=== PATIENT | male | born 1950 | race Two or more races ===

== ENCOUNTER 2022-12-06 | Emergency (ER) | payer OTHER, BC ==
[~2022-12-06] VITALS: Ht 165.1 cm; Wt 62.1 kg
--- NOTE | 2022-12-06 00:06 | NUR ---
Patient placed in room 2B. Patient Aox4, ambulatory.
--- NOTE | 2022-12-06 00:10 | NUR ---
Xray at bedside
[2022-12-06] MEDS ORDERED: OXYCODONE/APAP 5-325 MG TABLET ONE (00:11)
[2022-12-06] MEDS ORDERED: ONDANSETRON ODT 4 MG TAB.RAPDIS ONE (00:11)
[2022-12-06] MEDS ORDERED: ONDANSETRON ODT 4 MG TAB.RAPDIS SL ONE (00:15)
[2022-12-06] MEDS ORDERED: OXYCODONE/APAP 5-325 MG TABLET PO ONE (00:15)
--- NOTE | 2022-12-06 00:32 | NUR ---
Patient placed on right thumb spica. Patients at bedside
[2022-12-06] MEDS ORDERED: ONDA4TAB5 PO (00:39)
[2022-12-06] MEDS ORDERED: HYDR-4209 PO (00:39)
--- NOTE | 2022-12-06 00:50 | NUR ---
Patient discharged to home in stable condition with taking patient home. Written and verbal after care instructions given. verbalizes understanding of instructions. Stressed follow up or return to ER for worsening s/s.
[2022-12-06 00:51] VITALS: BP 128/50
== END 2022-12-06 00:51 | disposition home or self-care (01) ==
LOC: ER
DX: S63.601A Unspecified sprain of right thumb, initial encounter (principal); W01.0XXA Fall on same level from slipping, tripping and stumbling without subsequent striking against object, initial encounter; Y93.E8 Activity, other personal hygiene; Y92.511 Restaurant or cafe as the place of occurrence of the external cause
CPT/HCPCS: 73090; 73130; A4663; Q0162